=== PATIENT | male | born 1960 | race Caucasian/White ===

== ENCOUNTER 2023-01-10 14:07 | Emergency (ER) | payer BC ==
[2023-01-10 14:43] VITALS: BP 150/91
[2023-01-10] MEDS ORDERED: LIDOCAINE OINTMENT 5% 35.44 GM TUBE TOP STA (15:30)
[2023-01-10] MEDS ORDERED: BUFFERED LIDOCAINE 10 ML SYRINGE SUBQ STA (15:50)
[2023-01-10] MEDS ORDERED: TETANUS/DIPHTHERIA/PERTUSSIS 0.5 ML SYRINGE IM ONE (16:04)
--- NOTE | 2023-01-10 16:06 | ED Physician Documentation ---
PD HPI UPPER EXT INJURY - Stated complaint Stated Complaint: RT ARM LAC - Chief complaint Chief Complaint: Laceration - History obtained from History obtained from: Patient - History of Present Illness Location: Right, Hand Pain level max: 2 Pain level now: 1 Improved by: Rest Worsened by: Moving, Palpating Associated symptoms: No: Weakness, Numbness, Tingling, Swelling, Discolored Contributing factors: No: Anticoagulated - Additonal information Additional information: 62-year-old male with a right forearm laceration from a countertop earlier today. About 5 cm in length along the volar aspect of the forearm. Patient is right-handed. Unsure of last tetanus shot. Patient applied bandage glue to the laceration prior to arrival. No active bleeding. Review of Systems Constitutional: denies: Fever, Chills GI: denies: Vomiting, Diarrhea Skin: denies: Rash Musculoskeletal: denies: Neck pain, Back pain Neurologic: denies: Headache PD PAST MEDICAL HISTORY - Past Medical History Past Medical History: No - Allergies Allergies/Adverse Reactions: Allergies Allergy/AdvReac Type Severity Reaction Status Date / Time No Known Drug Allergies Allergy Verified 01/10/23 14:33 PD ED PE NORMAL - Vitals Vital signs reviewed: Yes - General General: Alert and oriented X 3, No acute distress - HEENT HEENT: Moist mucous membranes - Derm Derm: Warm and dry - Extremities Extremities: Other (R forearm - 5cm linear laceration.) - Neuro Neuro: Alert and oriented X 3 Results - Vitals Vitals: Vital Signs - 24 hr 01/10/23 14:33 Temperature 36.4 C L Heart Rate 62 Respiratory 16 Rate Blood Pressure 150/91 H O2 Saturation 97 Oxygen O2 Source Room air Procedures - Laceration (location) Right forearm Length in cm: 5 Wound type: Curved, Into subcut fat, Clean Neurovascular status: Sensory intact, Motor intact, Vascular intact Tendon involvement: Tendon intact Anesthesia: Lidocaine 1%, With bicarb Wound preparation: Irrigated copiously NS, Wound explored, To the base Skin layer closure: Nylon, Interrupted, Size #-0 - enter number (4), Sutures - enter # (5) Other: Patient tolerated well, No complications, Neurovascular intact, Dressing applied, Tetanus booster given PD Medical Decision Making - ED course Complexity details: reviewed results, re-evaluated patient, considered differential, d/w patient, d/w family ED course: 62-year-old male with a right forearm laceration. This was closed. Tolerated well. He and his did apply glue to the area prior to coming in, therefore lidocaine ointment was applied to dissolve the glue, the wound was then cleansed, irrigated all the glue was removed and the wound was sutured. Tdap given. Warnings of infection and instructions on wound care given at bedside. Also counseled on how to minimize scarring. Patient counseled regarding signs and symptoms for which I believe and urgent re-evaluation would be necessary. Patient with good understanding of and agreement to plan and is comfortable going home at this time This document was made in part using voice recognition software. While efforts are made to proofread this document, sound alike and grammatical errors may occur. Departure - Departure Disposition: 01 Home, Self Care Clinical Impression: Laceration of arm Qualifiers: Encounter type: initial encounter Laterality: right Qualified Code(s): S41.111A - Laceration without foreign body of right upper arm, initial encounter Condition: Good Instructions: ED Laceration Ext Sutr Stap Tape Follow-Up: your,doctor in 10-14 days for suture removal [Other] Comments: Please keep the wound clean. Please cover it whenever you are doing anything dirty such as a kitchen remodel. The sutures should be removed in approximately 10 to 14 days either here or with your doctor. Return for redness, swelling or drainage from the wound as these are signs of infection. You are given a tetanus shot today as well. Forms: PCP List
[2023-01-10] MEDS ORDERED: BACITRACIN ZINC OINT 1 PACKET TOP STA (16:27)
== END 2023-01-10 16:44 | disposition home or self-care (01) ==
LOC: ED 14:07
DX: S51.811A Laceration without foreign body of right forearm, initial encounter (principal); W26.8XXA Contact with other sharp object(s), not elsewhere classified, initial encounter; Y93.H3 Activity, building and construction; Y92.000 Kitchen of unspecified non-institutional (private) residence as the place of occurrence of the external cause
CPT/HCPCS: 12002; 90471; 90715; 99283; A9270

== ENCOUNTER 2023-01-24 08:55 | Emergency (ER) | payer BC ==
[2023-01-24 09:22] VITALS: BP 126/83; O2SAT 99
--- NOTE | 2023-01-24 09:24 | ED Physician Documentation ---
PD HPI WOUND RECHECK - Stated complaint Stated Complaint: STITCHES REMOVAL - Chief complaint Chief Complaint: Wound - Histroy obtained from History obtained from: Patient - History of Present Illness Location: Right Upper Extremity (forearm) Timing - onset: How many weeks ago (2) Recently seen: Emergency Dept Review of Systems Skin: denies: Rash, Lesions PD PAST MEDICAL HISTORY - Allergies Allergies/Adverse Reactions: Allergies Allergy/AdvReac Type Severity Reaction Status Date / Time No Known Drug Allergies Allergy Verified 01/24/23 09:12 PD ED PE NORMAL - Vitals Vital signs reviewed: Yes - General General: Alert and oriented X 3, Well developed/nourished - Extremities Extremities: Other (Healing wound right forearm without any signs of infection. [address] We will have the nurses remove them. Normal distal sensation and movement.) Results - Vitals Vitals: Vital Signs - 24 hr 01/24/23 09:12 Temperature 36.5 C Heart Rate 74 Respiratory 16 Rate Blood Pressure 126/83 H O2 Saturation 99 Oxygen O2 Source Room air PD Medical Decision Making - ED course Complexity details: considered differential, d/w patient Departure - Departure Disposition: 01 Home, Self Care Clinical Impression: Encounter for removal of sutures Condition: Stable Record reviewed to determine appropriate education?: Yes Instructions: ED Wound Check Sutr Remove No Infec Comments: There is appears well-healing. Continue wound care with cleaning and ointment until fully healed. Recheck of infection. Forms: PCP List Discharge Date/Time: 01/24/23 09:32
== END 2023-01-24 09:32 | disposition home or self-care (01) ==
LOC: ED 08:55
DX: S51.811D Laceration without foreign body of right forearm, subsequent encounter (principal); X58.XXXD Exposure to other specified factors, subsequent encounter
CPT/HCPCS: 99281; 99282